=== PATIENT | male | born 1940 | race Caucasian/White ===

== ENCOUNTER → 2016-04-17 | Outpatient (CLI) | payer MEDICARE, OTHER | LOC: RAD 09:08 | PROVIDERS: ATTEND Preventive Medicine Undersea and Hyperbaric Medicine | DX: L89.894 Pressure ulcer of other site, stage 4 (principal) ==

== ENCOUNTER → 2016-05-29 | Outpatient (CLI) | payer MEDICARE, OTHER | LOC: OD 09:46 | PROVIDERS: ATTEND Preventive Medicine Undersea and Hyperbaric Medicine | DX: L89.92 Pressure ulcer of unspecified site, stage 2 (principal) ==

== ENCOUNTER → 2016-05-29 | Outpatient (CLI) | payer MEDICARE, OTHER ==
[2016-05-29 11:04] LABS: ABSOLUTE EOSINOPHILS # (AUTO) 0.5 10^3/uL (0.0-0.6); ABSOLUTE LYMPHOCYTES (AUTO) 1.1 10^3/uL (0.5-4.7); ABSOLUTE MONOCYTES (AUTO) 0.6 10^3/uL (0.1-1.4); ABSOLUTE NEUT (AUTO) 4.9 10^3/uL (1.7-8.2); BASOPHILS % (AUTO) 0.6 % (0-2); EOSINOPHILS % (AUTO) 6.9 % (0-6); HEMOGLOBIN 12.8 g/dL (13.5-17.0); HGB HCT DIFFERENCE 0.4; MEAN CORPUSCULAR HEMOGLOBIN 34.2 pg (27.0-33.4); MEAN CORPUSCULAR HGB CONC 33.8 g/dL (32.0-36.0); MEAN CORPUSCULAR VOLUME 101 fl (80-97); MONOCYTES % (AUTO) 8.1 % (3-13); RED BLOOD COUNT 3.75 10^6/uL (4.35-5.55); RED CELL DISTRIBUTION WIDTH 12.9 % (11.5-14.0); SEGMENTED NEUTROPHILS % (AUTO) 69.4 % (42-78)
[2016-05-29 11:37] LABS: ALANINE AMINOTRANSFERASE 30 U/L (21-72); ALBUMIN 3.5 g/dL (3.5-5.0); ALKALINE PHOSPHATASE 80 U/L (38-126); ANION GAP 8 (5-19); ASPARTATE AMINO TRANSFERASE 38 U/L (17-59); BILIRUBIN,TOTAL 0.8 mg/dL (0.2-1.3); BLOOD UREA NITROGEN 14 mg/dL (7-20); C-REACTIVE PROTEIN 5.5 mg/L (<10.0); CARBON DIOXIDE 31 mmol/L (22-30); CHLORIDE 104 mmol/L (98-107); CREATININE RESULT 1.42 mg/dL (0.52-1.25); GLUCOSE 100 mg/dL (75-110); POTASSIUM 4.2 mmol/L (3.6-5.0); SODIUM 142.5 mmol/L (137-145); TOTAL PROTEIN 6.8 g/dL (6.3-8.2)
[2016-05-29 11:43] LABS: ERYTHROCYTE SEDIMENTATION RATE 46 mm/hr (0-20)
== END ==
LOC: WC 10:08
PROVIDERS: ATTEND Preventive Medicine Undersea and Hyperbaric Medicine
DX: L89.92 Pressure ulcer of unspecified site, stage 2 (principal)
CPT/HCPCS: 36415; 80053; 85025; 85652; 86140

== ENCOUNTER → 2016-07-24 | Outpatient (CLI) | payer MEDICARE, OTHER | LOC: OD 09:27 | PROVIDERS: ATTEND Preventive Medicine Undersea and Hyperbaric Medicine | DX: L89.894 Pressure ulcer of other site, stage 4 (principal) ==

== ENCOUNTER → 2016-09-11 | Outpatient (CLI) | payer MEDICARE, OTHER ==
--- NOTE | 2016-09-11 10:39 | RADIOLOGY REPORT (SQ) ---
EXAM DESCRIPTION: FOOT RIGHT COMPLETE COMPLETED DATE/TIME: 09/11/2016 10:00 am REASON FOR STUDY: PAIN IN RIGHT FOOT M79.671 PAIN IN RIGHT FOOT COMPARISON: Foot films 04/17/2016, 05/29/2016, 07/24/2016 NUMBER OF VIEWS: Three views. TECHNIQUE: AP, lateral and oblique radiographic images acquired of the right foot. LIMITATIONS: Bandages over the great toe distal tip FINDINGS: MINERALIZATION: Normal. BONES: No acute fracture. Specifically, no fracture of the right great toe distal phalanx. Prominen t plantar calcaneal spur unchanged. 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 SOFT TISSUES: Gauze bandages present over the right great toe distal phalanx region. Soft tissue lac eration is present. No gross retained radiopaque foreign body OTHER: No other significant finding. IMPRESSION: No acute fracture right great toe TECHNICAL DOCUMENTATION: JOB ID: [id number] 1989[employer]- All Rights Reserved
== END ==
LOC: OD 09:27
PROVIDERS: ATTEND Preventive Medicine Undersea and Hyperbaric Medicine
DX: M79.671 Pain in right foot (principal)

== ENCOUNTER 2016-09-12 10:28 | Emergency (ER) | payer MEDICARE, OTHER ==
[2016-09-12] MEDS ORDERED: OXYCODONE-ACETAMINOPHEN 5-325 MG TABLET PO ONE (11:07)
[2016-09-12] MEDS ORDERED: ONDANSETRON 4 MG TAB.RAPDIS PO ONE (11:07)
--- NOTE | 2016-09-12 11:07 | ER Document Report ---
ED Medical Screen (RME) - General Chief Complaint: Fall Injury Stated Complaint: FALL SHOULDER PAIN Time Seen by Provider: 09/12/16 10:55 Mode of Arrival: Ambulatory Information source: Patient TRAVEL OUTSIDE OF THE U.[place] IN LAST 30 DAYS: No - HPI Onset: This morning Onset/Duration: Sudden Quality of pain: Sharp Severity: Moderate Associated Symptoms: None Exacerbated by: Movement Relieved by: Remaining still - Related Data Allergies/Adverse Reactions: amoxicillin trihydrate [From Augmentin] Adverse Reaction (Verified 09/12/16 10: 29) Dizziness Potassium Clavulanate * [From Augmentin] Adverse Reaction (Verified 09/12/16 10: 29) Dizziness Past Medical History - General Information source: Patient - Past Medical History Cardiac Medical History: Reports: Hx Hypertension Denies: Hx Coronary Artery Disease, Hx Heart Attack Pulmonary Medical History: Denies: Hx Asthma, Hx Bronchitis, Hx COPD, Hx Pneumonia, Hx Tuberculosis Neurological Medical History: Denies: Hx Cerebrovascular Accident, Hx Seizures Renal/ Medical History: Denies: Hx Peritoneal Dialysis Musculoskeltal Medical History: Reports Hx Arthritis - Back and Generalized Past Surgical History: Reports: Hx Tonsillectomy. Denies: Hx Pacemaker - Immunizations Hx Diphtheria, Pertussis, Tetanus Vaccination: Yes - Update 2011 Review of Systems - Review of Systems Constitutional: No symptoms reported Cardiovascular: denies: Syncope, Dizziness, Lightheaded Neurological/Psychological: Weakness - CANDELARIA LEGS "GAVE OUT" Physical Exam - Vital signs Vitals: Temp Pulse Resp BP Pulse Ox 98.5 F 91 19 128/78 H 95 09/12/16 10:29 09/12/16 10:29 09/12/16 10:29 09/12/16 10:29 09/12/16 10:29 Interpretation: Normal - General General appearance: Appears well, Alert In distress: None - Extremities General upper extremity: Tender - R. CLAVICLE & DELTOID AREA Shoulder: Tender. No: Deformity, Dislocation Course - Vital Signs Vital signs: Temp Pulse Resp BP Pulse Ox 98.5 F 91 19 128/78 H 09/12/16 10:30 09/12/16 10:30 09/12/16 10:30 09/12/16 10:30 09/12/16 10:30
--- NOTE | 2016-09-12 11:50 | RADIOLOGY REPORT (SQ) ---
EXAM DESCRIPTION: CLAVICLE RIGHT COMPLETED DATE/TIME: 09/12/2016 11:41 am REASON FOR STUDY: FALL, PAIN COMPARISON: None. NUMBER OF VIEWS: Two views. TECHNIQUE: Frontal and angled images were acquired of the right clavicle. LIMITATIONS: None. FINDINGS: MINERALIZATION: Normal. BONES: No acute fracture or dislocation. No worrisome bone lesions. SOFT TISSUES: No obvious swelling or foreign body. OTHER: There is mild bony overgrowth of the distal clavicle. IMPRESSION: Mild degenerative joint changes in the acromioclavicular joint with no acute abnormality . TECHNICAL DOCUMENTATION: JOB ID: [id number] [employer]- All Rights Reserved
--- NOTE | 2016-09-12 11:51 | RADIOLOGY REPORT (SQ) ---
EXAM DESCRIPTION: SHOULDER RIGHT 2 OR MORE VIEWS COMPLETED DATE/TIME: 09/12/2016 11:41 am REASON FOR STUDY: FALL, PAIN COMPARISON: None. NUMBER OF VIEWS: Three views. TECHNIQUE: Internal rotation, external rotation, and Y view images acquired of the right shoulder. LIMITATIONS: None. FINDINGS: MINERALIZATION: Normal. BONES: No acute fracture or dislocation. No worrisome bone lesions. JOINTS: Mild degenerative joint changes seen in the acromioclavicular joint. VISUALIZED LUNGS AND RIBS: No pneumothorax. No rib fracture. SOFT TISSUES: No radiopaque foreign body. OTHER: No other significant finding. IMPRESSION: Mild degenerative joint changes in the right acromioclavicular joint. No acute abnormal ity in the shoulder. TECHNICAL DOCUMENTATION: JOB ID: [id number] [employer]- All Rights Reserved
--- NOTE | 2016-09-12 11:58 | ER Document Report ---
ED General - General Chief Complaint: Fall Injury Stated Complaint: FALL SHOULDER PAIN Time Seen by Provider: 09/12/16 10:55 Mode of Arrival: Ambulatory Notes: Patient presents emergency department with complaints of right shoulder pain. Patient reports that he was going walking down his hallway when he went down to 1 knee and fell onto his right shoulder. He denies change in LOC. Did not hit his head. Patient reports his shoulder hurt at that time and has increased pain. He was evaluated for his toe injury by Dr. Fowler yesterday. Patient complains of pain with any type of movement to his right arm active or passive. Place a heating pad on his shoulder area. TRAVEL OUTSIDE OF THE [place] IN LAST 30 DAYS: No - HPI Onset: Other - thursday Onset/Duration: Worse Quality of pain: Achy Severity: Severe Pain Level: 5 Associated symptoms: None Exacerbated by: Movement Relieved by: Denies Similar symptoms previously: No Recently seen / treated by doctor: Yes - toe injury - Related Data Allergies/Adverse Reactions: amoxicillin trihydrate [From Augmentin] Adverse Reaction (Verified 09/12/16 10: 29) Dizziness Potassium Clavulanate * [From Augmentin] Adverse Reaction (Verified 09/12/16 10: 29) Dizziness Past Medical History - General Information source: Patient - Social History Smoking Status: Unknown if Ever Smoked Cigarette use (# per day): No Frequency of alcohol use: Occasional Drug Abuse: None Family History: Reviewed & Not Pertinent Patient has suicidal ideation: No Patient has homicidal ideation: No - Past Medical History Cardiac Medical History: Reports: Hx Hypercholesterolemia, Hx Hypertension Denies: Hx Coronary Artery Disease, Hx Heart Attack Pulmonary Medical History: Denies: Hx Asthma, Hx Bronchitis, Hx COPD, Hx Pneumonia, Hx Tuberculosis Neurological Medical History: Denies: Hx Cerebrovascular Accident, Hx Seizures Renal/ Medical History: Denies: Hx Peritoneal Dialysis Musculoskeltal Medical History: Reports Hx Arthritis - Back and Generalized Past Surgical History: Reports: Hx Orthopedic Surgery, Hx Tonsillectomy. Denies : Hx Pacemaker - Immunizations Hx Diphtheria, Pertussis, Tetanus Vaccination: Yes - Update 2010 Review of Systems - Review of Systems Notes: Review HPI for review of systems., All other systems negative Physical Exam - Vital signs Vitals: Temp Pulse Resp BP Pulse Ox 98.5 F 91 19 128/78 H 95 09/12/16 10:29 09/12/16 10:29 09/12/16 10:29 09/12/16 10:29 09/12/16 10:29 - Notes Notes: PHYSICAL EXAMINATION: GENERAL: nontoxic looking HEAD: Atraumatic, normocephalic. no open wounds, no c/o pain EYES: extraocular movements intact, sclera anicteric, conjunctiva are normal. ENT: nares patent, Moist mucous membranes. NECK: Normal range of motion, supple without lymphadenopathy no vertebral tenderness LUNGS: CTAB and equal. No wheezes rales or rhonchi. HEART: Regular rate and rhythm without murmurs ABDOMEN: Soft, no tenderness. No guarding, no rebound EXTREMITIES: reports pain with passive and active ROM to right shoulder, erythema noted to shoulder, no warmth, no obvious deformity, no swelling NEUROLOGICAL: Cranial nerves grossly intact. Normal sensory/motor exams. PSYCH: Normal mood, normal affect. SKIN: Warm, Dry, normal turgor, no rashes or lesions noted Course - Re-evaluation Re-evalutation: 09/12/16 11:59 . X-rays negative patient instructed on results. consulted dr fajardo per [facility] guidelines, xray cc, history reviewed, she agrees with treatment plan of discharge fu with ortho. No sling provided because I'm worried about patients stability. He lives alone and uses a walker. I am also prescribing naproxen for the pain. Because I am again worried about his stability and because he lives alone. Pt reports he never takes pain medication. The patient reports his primary care provider is on [place] as well as orthopedics. He reports he will follow-up and make an appointment. - Vital Signs Vital signs: Temp Pulse Resp BP Pulse Ox 98.2 F 81 16 117/61 97 09/12/16 12:36 09/12/16 12:36 09/12/16 12:36 09/12/16 12:36 09/12/16 12:36 - Diagnostic Test Radiology reviewed: Image reviewed, Reports reviewed - Diagnostic report text EXAM DESCRIPTION: CLAVICLE RIGHT COMPLETED DATE/TIME: 09/12/2016 11:41 am REASON FOR STUDY: FALL, PAIN COMPARISON: None. NUMBER OF VIEWS: Two views. TECHNIQUE: Frontal and angled images were acquired of the right clavicle. LIMITATIONS: None. FINDINGS: MINERALIZATION: Normal. BONES: No acute fracture or dislocation. No worrisome bone lesions. SOFT TISSUES: No obvious swelling or foreign body. OTHER: There is mild bony overgrowth of the distal clavicle. IMPRESSION: Mild degenerative joint changes in the acromioclavicular joint with no acute abnormality. Diagnostic report text EXAM DESCRIPTION: SHOULDER RIGHT 2 OR MORE VIEWS COMPLETED DATE /TIME: 09/12/2016 11:41 am REASON FOR STUDY: FALL, PAIN COMPARISON: None. NUMBER OF VIEWS: Three views. TECHNIQUE: Internal rotation, external rotation , and Y view images acquired of the right shoulder. LIMITATIONS: None. FINDINGS: MINERALIZATION: Normal. BONES: No acute fracture or dislocation. No worrisome bone lesions. JOINTS: Mild degenerative joint changes seen in the acromioclavicular joint. VISUALIZED LUNGS AND RIBS: No pneumothorax. No rib fracture. SOFT TISSUES: No radiopaque foreign body. OTHER: No other significant finding. IMPRESSION: Mild degenerative joint changes in the right acromioclavicular joint. No acute abnormality in the shoulder. Discharge - Discharge Clinical Impression: Right shoulder pain Condition: Stable Disposition: HOME, SELF-CARE Instructions: Oral Narcotic Medication ([facility]), Anti-Inflammatory Medication ([facility] ) Additional Instructions: *You have been evaluated for right shoulder pain *Rest/ ice packs to your shoulder *Follow up with your primary care provider for recheck within 5 days *Follow up with orthopedics within one week *Take medication as prescribed *Return to ED for worsening condition, changes, needs Prescriptions: Naproxen 500 mg PO BID #20 tablet Forms: Elevated Blood Pressure Referrals: VIRIDIANA FOWLER DPM [Primary Care Provider] - Follow up in 1 week
[2016-09-12 12:38] VITALS: BP 117/61
== END 2016-09-12 12:36 | disposition home or self-care (01) ==
LOC: ER 10:28
DX: M25.511 Pain in right shoulder (principal); W19.XXXA Unspecified fall, initial encounter
CPT/HCPCS: 99283; 73000; 73030; A9270 ×2; S0119

== ENCOUNTER 2016-10-04 09:33 | Emergency (ER) | payer MEDICARE, OTHER ==
[2016-10-04 09:39] VITALS: BP 166/76
[2016-10-04] MEDS ORDERED: CEPHALEXIN 500 MG CAPSULE PO ONE (10:30)
--- NOTE | 2016-10-04 10:34 | ER Document Report ---
HPI - HPI Pain Level: 1 Context: This 75-year-old male who presents emergency department complaining of skin tears on his left arm. Patient states that he suffered a fall at his home 1 week ago on Thursday. Seen his primary care provider since then. Denies any other complaints other than skin tears on his arms that are not healing. Patient states that he has been dressing them with a Band-Aid but every time he pulls it off he continued to bleed. Patient is not on blood thinners or chronic steroids. Patient states that the lower of the 2 with overlying scab showed evidence of cloudy drainage this morning. Patient denies any fevers, chills, swelling, tenderness, redness. On medications for hypertension and cholesterol. - REPRODUCTIVE Reproductive: DENIES: : - DERM Skin Color: Normal Past Medical History - Social History Smoking Status: Never Smoker Family History: Reviewed & Not Pertinent Patient has suicidal ideation: No Patient has homicidal ideation: No - Past Medical History Cardiac Medical History: Reports: Hx Hypercholesterolemia, Hx Hypertension Denies: Hx Coronary Artery Disease, Hx Heart Attack Pulmonary Medical History: Denies: Hx Asthma, Hx Bronchitis, Hx COPD, Hx Pneumonia, Hx Tuberculosis Neurological Medical History: Denies: Hx Cerebrovascular Accident, Hx Seizures Renal/ Medical History: Denies: Hx Peritoneal Dialysis Musculoskeltal Medical History: Reports Hx Arthritis - Back and Generalized Past Surgical History: Reports: Hx Orthopedic Surgery, Hx Tonsillectomy. Denies : Hx Pacemaker - Immunizations Hx Diphtheria, Pertussis, Tetanus Vaccination: Yes - Update 2011 [facility] Provider Document - CONSTITUTIONAL Agree With Documented VS: Yes Exam Limitations: No Limitations General Appearance: WD/WN, No Apparent Distress - INFECTION CONTROL TRAVEL OUTSIDE OF THE [place] IN LAST 30 DAYS: No - RESPIRATORY O2 Sat by Pulse Oximetry: 97 - CARDIOVASCULAR Pulses: Normal: Radial - MUSCULOSKELETAL/EXTREMETIES Musculoskeletal/Extremeties: MAEW, FROM, Non-Tender, No Edema - NEURO Level of Consciousness: Awake, Alert, Appropriate Motor/Sensory: No Motor Deficit, No Sensory Deficit - DERM Integumentary: Warm, Dry, No Rash Adult Front & Back Diagram: 1 - skin tear without overlying skin, reveal healthy pink tissue with minimal bleeding, no evidence of cellulitis 2 - skin tear with intact overlying skin, no evidence of purulent draiange, cellulitis Course - Re-evaluation Re-evalutation: 10/04/16 11:13 Patient presents today with evidence of poorly healing skin tears given that patient has been using dry dressings. Patient educated on wound care and placed on prophylactic antibiotic. Patient to follow-up with primary care in 3- 5 days - Vital Signs Vital signs: Temp Pulse Resp BP Pulse Ox 98.1 F 73 18 166/76 H 97 10/04/16 09:37 10/04/16 09:37 10/04/16 09:37 10/04/16 09:37 10/04/16 09:37 Discharge - Discharge Clinical Impression: Skin tear Condition: Good Disposition: HOME, SELF-CARE Instructions: Skin Tear ([facility]), Cephalexin ([facility]) Additional Instructions: Dress the site with an antibiotic ointment like bacitracin, cover with a NON STICK dressing Do dressing changes once daily or as needed Prescriptions: Cephalexin Monohydrate [Keflex 500 mg Capsule] 500 mg PO QID #20 capsule Forms: Elevated Blood Pressure
== END 2016-10-04 10:36 | disposition home or self-care (01) ==
LOC: ER 09:33
DX: S41.112A Laceration without foreign body of left upper arm, initial encounter (principal); W19.XXXA Unspecified fall, initial encounter
CPT/HCPCS: 99282; A9270

== ENCOUNTER 2016-10-26 21:52 | Emergency (ER) | payer MEDICARE, OTHER ==
[2016-10-26] MEDS ORDERED: LIDOCAINE 1% INJ-PF (10 MG/ML) 30 ML SDV INJ ONE (23:24)
--- NOTE | 2016-10-26 23:48 | RADIOLOGY REPORT (SQ) ---
EXAM DESCRIPTION: CT HEAD WITHOUT COMPLETED DATE/TIME: 10/26/2016 11:37 pm REASON FOR STUDY: trauma COMPARISON: 2016 TECHNIQUE: Axial images acquired through the brain without intravenous contrast. Images reviewed wi th bone, brain and subdural windows. Images stored on PACS. All CT scanners at this facility use dose modulation, iterative reconstruction, and/or weight based d osing when appropriate to reduce radiation dose to as low as reasonably achievable (ALARA). [facility]: Dose Right [facility]: CareDose [facility]: Dose Right [facility]: Teradose 4D [facility]: Smart NCLC RADIATION DOSE: Up-to-date CT equipment and radiation dose reduction techniques were employed. CTDIv ol: 64.6 mGy. DLP: 1163 mGy-cm.mGy. LIMITATIONS: None. FINDINGS: VENTRICLES: Slight prominence. Stable. CEREBRUM: No masses. No hemorrhage. No midline shift. Minimal of low density in the white matter m ost likely due to chronic micro-vascular ischemic change. No evidence for acute infarction. CEREBELLUM: No masses. No hemorrhage. No alteration of density. No evidence for acute infarction. EXTRAAXIAL SPACES: Age-related involutional change. No fluid collections. No masses. ORBITS AND GLOBE: No intra- or extraconal masses. Normal contour of globe without masses. CALVARIUM: No fracture. PARANASAL SINUSES: No fluid or mucosal thickening. SOFT TISSUES: Right frontal scalp laceration. OTHER: No other significant finding. IMPRESSION: Mild chronic intracranial changes. Soft tissue injury without acute abnormality otherwi se. TECHNICAL DOCUMENTATION: JOB ID: [id number] Quality ID # [id number]: Final reports with documentation of one or more dose reduction techniques (e.g., Au tomated exposure control, adjustment of the mA and/or kV according to patient size, use of iterative reconstruction technique) 2010 [employer]- All Rights Reserved
--- NOTE | 2016-10-27 00:10 | ER Document Report ---
ED General - General Chief Complaint: Laceration Stated Complaint: LACERATION TO SCALP Time Seen by Provider: 10/26/16 23:18 Notes: Patient is a 76-year-old male presents with complaint of laceration to the scalp. [facility] and [facility] and fell and hit his head. No loss conscious. He denies any neck pain. He denies any other injuries. He denies being on blood thinning medications. TRAVEL OUTSIDE OF THE [place] IN LAST 30 DAYS: No - Related Data Allergies/Adverse Reactions: amoxicillin trihydrate [From Augmentin] Adverse Reaction (Verified 10/04/16 09: 37) Dizziness Potassium Clavulanate * [From Augmentin] Adverse Reaction (Verified 10/04/16 09: 37) Dizziness Past Medical History - Social History Smoking Status: Unknown if Ever Smoked Frequency of alcohol use: None Drug Abuse: None Family History: Reviewed & Not Pertinent Patient has suicidal ideation: No Patient has homicidal ideation: No - Past Medical History Cardiac Medical History: Reports: Hx Hypercholesterolemia, Hx Hypertension Denies: Hx Coronary Artery Disease, Hx Heart Attack Pulmonary Medical History: Denies: Hx Asthma, Hx Bronchitis, Hx COPD, Hx Pneumonia, Hx Tuberculosis Neurological Medical History: Denies: Hx Cerebrovascular Accident, Hx Seizures Renal/ Medical History: Denies: Hx Peritoneal Dialysis Musculoskeltal Medical History: Reports Hx Arthritis - Back and Generalized Past Surgical History: Reports: Hx Orthopedic Surgery, Hx Tonsillectomy. Denies : Hx Pacemaker - Immunizations Hx Diphtheria, Pertussis, Tetanus Vaccination: Yes - Update 2010 Review of Systems - Review of Systems Notes: My Normal Review Basic REVIEW OF SYSTEMS: CONSTITUTIONAL : Denies fever, chills, or sweats. Denies recent illness. GASTROINTESTINAL: Denies abdominal pain. Denies nausea, vomiting, or diarrhea. Denies constipation. Last BM: MUSCULOSKELETAL: Denies neck or back pain or joint pain or swelling. SKIN: Laceration to right oriental orthodox area. HEMATOLOGIC : Denies easy bruising or bleeding. LYMPHATIC: Denies swollen, enlarged glands. NEUROLOGICAL: Denies altered mental status or loss of consciousness. Denies headache. Denies weakness or paralysis or loss of use of either side. Denies problems with gait or speech. Denies sensory or motor loss. ALL OTHER SYSTEMS REVIEWED AND NEGATIVE. Physical Exam - Vital signs Vitals: Temp Pulse Resp BP Pulse Ox 97.8 F 65 18 142/69 H 97 10/26/16 21:59 10/26/16 21:59 10/26/16 21:59 10/26/16 21:59 10/26/16 21:59 - Notes Notes: General Appearance: Well nourished, alert, cooperative, no acute distress, no obvious discomfort. Vitals: reviewed, See vital signs table. Head: 4 cm laceration over the right oriental orthodox area. Eyes: PERRL, EOMI, Conjuctiva clear Mouth: No decreasd moisture Neck: Supple, no neck tenderness, No thyromegaly Lungs: No wheezing, No rales, No rhonci, No accessory muscle use, good air exchange bilaterally. Heart: Normal rate, Regular rythm, No murmur, no rub Abdomen: Normal BS, soft, No rigidity, No abdominal tenderness, No guarding, no rebound, Extremities: strength 5/5 in all extremities, good pulses in all extremities, no swelling or tenderness in the extremities, 2+ bilateral lower extremity edema. Skin: warm, dry, appropriate color, no rash Neuro: speech clear, oriented x 3, normal affect, responds appropriately to questions. Cranial nerves II through XII are intact. Distal sensation intact. Patient moves all extremities without difficulty. Course - Vital Signs Vital signs: Temp Pulse Resp BP Pulse Ox 97.1 F 66 16 149/74 H 98 10/27/16 01:15 10/27/16 01:15 10/27/16 01:15 10/27/16 01:15 10/27/16 01:15 - Transfer of Care Notes: 10/27/16 06:05 Laceration was cleaned and thoroughly irrigated. It was closed with sutures. CT scan of the head was negative. Patient tolerated the procedure well and will be discharged home. He is encouraged to return to ER if there is any redness or swelling around the laceration, fevers severe headache, or vomiting. Patient to have sutures removed in 7 days. Patient agrees with the plan and will be discharged home. Dictation of this chart was performed using voice recognition software; therefore, there may be some unintended grammatical errors. Procedures - Laceration/Wound Repair right temporarl area Wound length (cm): 4 Wound's Depth, Shape: Linear Anesthetic type: 1% Lidocaine Volume Anesthetic (mLs): 2 Wound explored: Clean Irrigated w/ Saline (mLs): 30 Wound Repaired With: Sutures Suture Size/Type: 5:0, Ethilon Number of Sutures: 4 Complications: No Discharge - Discharge Clinical Impression: Laceration Condition: Good Disposition: HOME, SELF-CARE Additional Instructions: LACERATION CARE: Your laceration has been sutured to keep the skin edges aligned during healing. The time of suture removal depends on the nature and location of your cut. Please follow the care instructions the doctor has outlined for you and return for further care, according to the schedule you've been given. Keep the wound and dressing clean. Unless you were told otherwise, you may shower daily, blotting the wound dry with a clean, unused towel. At other times, If the dressing gets wet or blood soaked, remove it and blot the wound dry, then reapply a new dressing. Unless you were instructed otherwise, dressings should be changed at least daily. If any signs of infection occur (swelling, redness, drainage, increasing tenderness, red streaks, tender lumps in the armpit or groin above the laceration, or fever), see the doctor immediately. SOAP CLEANSING: Gently wash the wound daily using a mild soap (like Ivory, Phisoderm, Neutrogena). Use warm water, rubbing gently until all debris, ooze, and crusting have been washed from the wound. Allow to dry briefly (about 10 minutes) after cleaning. Repeat this cleansing at least three times a day for the first two days and then once or twice a day. ANTIBIOTIC OINTMENT PROTECTION: Your wounds are such that dressing them is not practical or optional. After cleansing, you should apply a thin coating of antibiotic ointment ( Bacitracin, not Neosporin) to the wounds at least three times daily. This lessens infection risk, and may decrease the amount of scarring. Use a q-tip or dull butter knife, not your finger, to apply this ointment. Any debris or ooze which builds up in the ointment should be gently rubbed off with a sterile gauze pad. Harder crusting may need to be gently scrubbed off with a clean wash cloth with soap and warm water, perhaps applying a warm, wet wash cloth to the wound for ten minutes first. Development of redness, severe itching, or blistering may mean allergy to the ointment. See the doctor. FOLLOW-UP CARE: Your sutures should be removed in ___7__ days. To facilitate a timely removal of your sutures, you may return to the Emergency Department at [facility]. You do not need to call for an appointment, but the best time to come in for suture removal is early in the morning. If you have been referred to another physician for follow-up care, call that physicians office for an appointment as you were instructed. If you experience a significant change in your laceration, or if you are concerned there may be an infection (swelling, redness, drainage, increasing tenderness, red streaks, tender lumps in the armpit or groin above the laceration, or fever) , return to the Emergency Department immediately re-evaluation.
[2016-10-27 01:48] VITALS: BP 149/74
== END 2016-10-27 01:20 | disposition home or self-care (01) ==
LOC: ER 21:52
PROC: 0HQ1XZZ Repair Face Skin, External Approach (ICD-10-PCS; principal; 2016-10-26)
DX: S01.01XA Laceration without foreign body of scalp, initial encounter (principal); W01.0XXA Fall on same level from slipping, tripping and stumbling without subsequent striking against object, initial encounter
CPT/HCPCS: 70450; 99283

== ENCOUNTER 2016-11-11 05:00 | Emergency (ER) | payer MEDICARE, OTHER ==
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
[2016-11-11 14:15] VITALS: BP 127/85
== END 2016-11-11 17:32 | disposition home or self-care (01) ==
LOC: ER 05:00
DX: S51.812A Laceration without foreign body of left forearm, initial encounter (principal); S51.811A Laceration without foreign body of right forearm, initial encounter; X58.XXXA Exposure to other specified factors, initial encounter; F03.90 Unspecified dementia, unspecified severity, without behavioral disturbance, psychotic disturbance, mood disturbance, and anxiety; R45.1 Restlessness and agitation; I10 Essential (primary) hypertension
CPT/HCPCS: 99284

== ENCOUNTER 2017-12-26 12:03 | Inpatient (IN) | payer MEDICARE, OTHER ==
[2017-12-26] MEDS ORDERED: LEVOFLOXACIN 750 MG/D5W RTU 750 MG/150 ML RTUPB IV ONE (13:18)
[2017-12-26 13:35] LABS: ABSOLUTE EOSINOPHILS # (AUTO) 0.2 10^3/uL (0.0-0.6); ABSOLUTE LYMPHOCYTES (AUTO) 0.9 10^3/uL (0.5-4.7); ABSOLUTE MONOCYTES (AUTO) 0.9 10^3/uL (0.1-1.4); ABSOLUTE NEUT (AUTO) 8.7 10^3/uL (1.7-8.2); BASOPHILS % (AUTO) 0.4 % (0-2); EOSINOPHILS % (AUTO) 2.1 % (0-6); HEMATOCRIT 39.9 % (37.9-51.0); HEMOGLOBIN 13.5 g/dL (13.5-17.0); LYMPHOCYTES % (AUTO) 8.4 % (13-45); MEAN CORPUSCULAR HEMOGLOBIN 33.2 pg (27.0-33.4); MEAN CORPUSCULAR HGB CONC 33.9 g/dL (32.0-36.0); MEAN CORPUSCULAR VOLUME 98 fl (80-97); MONOCYTES % (AUTO) 8.8 % (3-13); PLATELET COUNT 175 10^3/uL (150-450); RED BLOOD COUNT 4.08 10^6/uL (4.35-5.55); RED CELL DISTRIBUTION WIDTH 13.3 % (11.5-14.0); SEGMENTED NEUTROPHILS % (AUTO) 80.3 % (42-78); TOTAL CELLS COUNTED % (AUTO) 100 %; WHITE BLOOD COUNT 10.8 10^3/uL (4.0-10.5)
[2017-12-26 13:51] LABS: ALANINE AMINOTRANSFERASE 16 U/L (21-72); ALBUMIN 4.4 g/dL (3.5-5.0); ALKALINE PHOSPHATASE 66 U/L (38-126); ANION GAP 8 (5-19); ASPARTATE AMINO TRANSFERASE 47 U/L (17-59); BILIRUBIN,TOTAL 2.8 mg/dL (0.2-1.3); BLOOD UREA NITROGEN 16 mg/dL (7-20); CALCIUM 9.6 mg/dL (8.4-10.2); CARBON DIOXIDE 26 mmol/L (22-30); CHLORIDE 103 mmol/L (98-107); GLUCOSE 99 mg/dL (75-110); POTASSIUM 5.1 mmol/L (3.6-5.0); SODIUM 136.5 mmol/L (137-145); TOTAL PROTEIN 8.7 g/dL (6.3-8.2)
--- NOTE | 2017-12-26 14:13 | RADIOLOGY REPORT (SQ) ---
EXAM DESCRIPTION: FOOT BILATERAL 3 VIEWS COMPLETED DATE/TIME: 12/26/2017 1:56 pm REASON FOR STUDY: EVAL FOR INFECTION COMPARISON: None. NUMBER OF VIEWS: Three views. TECHNIQUE: AP, lateral and oblique radiographic images acquired of the right and left foot. LIMITATIONS: None. FINDINGS: RIGHT: MINERALIZATION: Normal. BONES: No acute fracture or dislocation. Prominent plantar calcaneal spur. 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 No foreign body. No soft tissue gas OTHER: No other significant finding. LEFT: MINERALIZATION: Normal. BONES: No acute fracture or dislocation. No aggressive demineralization or periostitis worrisome for osteomyelitis. JOINTS: Advanced osteoarthritis left 1st metatarsophalangeal joint SOFT TISSUES: Soft tissue ulcer medial left forefoot at the 1st metatarsophalangeal joint without und erlying bony findings worrisome for osteomyelitis. Mild diffuse forefoot soft tissue swelling. No s oft tissue gas or radiopaque foreign body OTHER: No other significant finding. IMPRESSION: Mild right forefoot soft tissue swelling Soft tissue ulcer medial left foot at the 1st metatarsophalangeal joint region without bony changes w orrisome for osteomyelitis TECHNICAL DOCUMENTATION: JOB ID: [id number] [employer]- All Rights Reserved Reading location - IP/workstation name: [facility]-[email or web address]
[2017-12-26] MEDS ORDERED: ACETAMINOPHEN 325 MG TABLET PO ONE (14:15)
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
[2017-12-26] MEDS ORDERED: ONDANSETRON HCL INJ/PF 4 MG/2 ML SDV IV PRN (14:52)
[2017-12-26] MEDS ORDERED: AMPICILLIN SODIUM/SULBACTAM NA 2 GM in NORMAL SALINE 100 ML IV SCH (15:00)
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
[2017-12-26] MEDS: AMPICILLIN SODIUM/SULBACTAM NA 3 GM in NORMAL SALINE 100 ML IV SCH (18:26)
[2017-12-26] MEDS: ACETAMINOPHEN 325 MG TABLET PO PRN (20:49)
[2017-12-26] MEDS: HEPARIN SOD (PORCINE) 5,000 UNIT/ML 1 ML SYRINGE SUBCUT SCH (22:05)
[2017-12-26] MEDS: METOPROLOL SUCCINATE 50 MG TAB.SR.24H PO SCH (22:05)
[2017-12-26] MEDS: FAMOTIDINE 20 MG TABLET PO SCH (22:05)
[2017-12-27] MEDS: AMPICILLIN SODIUM/SULBACTAM NA 3 GM in NORMAL SALINE 100 ML IV SCH ×5 (01:09→23:00)
[2017-12-27 05:45] LABS: ABSOLUTE EOSINOPHILS # (AUTO) 0.3 10^3/uL (0.0-0.6); ABSOLUTE LYMPHOCYTES (AUTO) 0.4 10^3/uL (0.5-4.7); ABSOLUTE MONOCYTES (AUTO) 0.5 10^3/uL (0.1-1.4); ABSOLUTE NEUT (AUTO) 5.7 10^3/uL (1.7-8.2); BASOPHILS % (AUTO) 0.3 % (0-2); EOSINOPHILS % (AUTO) 4.7 % (0-6); HEMATOCRIT 35.4 % (37.9-51.0); MEAN CORPUSCULAR HEMOGLOBIN 33.1 pg (27.0-33.4); MEAN CORPUSCULAR HGB CONC 33.9 g/dL (32.0-36.0); MEAN CORPUSCULAR VOLUME 98 fl (80-97); MONOCYTES % (AUTO) 6.7 % (3-13); PLATELET COUNT 138 10^3/uL (150-450); RED BLOOD COUNT 3.62 10^6/uL (4.35-5.55); RED CELL DISTRIBUTION WIDTH 13.5 % (11.5-14.0); SEGMENTED NEUTROPHILS % (AUTO) 82.3 % (42-78); TOTAL CELLS COUNTED % (AUTO) 100 %
[2017-12-27 06:07] LABS: ANION GAP 8 (5-19); BLOOD UREA NITROGEN 18 mg/dL (7-20); CALCIUM 8.9 mg/dL (8.4-10.2); CARBON DIOXIDE 24 mmol/L (22-30); CHLORIDE 105 mmol/L (98-107); GLUCOSE 100 mg/dL (75-110); SODIUM 137.1 mmol/L (137-145)
[2017-12-27] MEDS: HEPARIN SOD (PORCINE) 5,000 UNIT/ML 1 ML SYRINGE SUBCUT SCH ×3 (06:11→22:53)
[2017-12-27 07:12] LABS: POTASSIUM 4.1 mmol/L (3.6-5.0)
[2017-12-27] MEDS: METOPROLOL SUCCINATE 50 MG TAB.SR.24H PO SCH ×2 (11:00→22:57)
[2017-12-27] MEDS: FAMOTIDINE 20 MG TABLET PO SCH ×2 (11:00→22:57)
[2017-12-27] MEDS: RAMIPRIL 5 MG CAPSULE PO SCH (11:00)
[2017-12-27] MEDS: DOCUSATE SODIUM 100 MG CAPSULE PO SCH (11:00)
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
[2017-12-27] MEDS: ACETAMINOPHEN 325 MG TABLET PO PRN (14:41)
[2017-12-28 05:41] LABS: HEMATOCRIT 35.3 % (37.9-51.0); HEMOGLOBIN 12.2 g/dL (13.5-17.0); MEAN CORPUSCULAR HEMOGLOBIN 33.5 pg (27.0-33.4); MEAN CORPUSCULAR HGB CONC 34.5 g/dL (32.0-36.0); MEAN CORPUSCULAR VOLUME 97 fl (80-97); PLATELET COUNT 139 10^3/uL (150-450); RED BLOOD COUNT 3.63 10^6/uL (4.35-5.55); RED CELL DISTRIBUTION WIDTH 13.6 % (11.5-14.0); WHITE BLOOD COUNT 9.5 10^3/uL (4.0-10.5)
[2017-12-28] MEDS: HEPARIN SOD (PORCINE) 5,000 UNIT/ML 1 ML SYRINGE SUBCUT SCH ×3 (05:41→22:52)
[2017-12-28] MEDS: AMPICILLIN SODIUM/SULBACTAM NA 3 GM in NORMAL SALINE 100 ML IV SCH ×4 (06:00→23:14)
[2017-12-28 06:14] LABS: ANION GAP 7 (5-19); BLOOD UREA NITROGEN 22 mg/dL (7-20); CALCIUM 8.3 mg/dL (8.4-10.2); CARBON DIOXIDE 22 mmol/L (22-30); CHLORIDE 106 mmol/L (98-107); GLUCOSE 105 mg/dL (75-110); SODIUM 135.3 mmol/L (137-145)
[2017-12-28 06:15] LABS: ABSOLUTE LYMPHOCYTES# (MANUAL) 0.1 10^3/uL (0.5-4.7); ABSOLUTE MONOCYTES # (MANUAL) 0.6 10^3/uL (0.1-1.4); ABSOLUTE NEUTROPHILS# (MANUAL) 8.5 10^3/uL (1.7-8.2); BASOPHILS % (MANUAL) 0 % (0-2); EOSINOPHILS % (MANUAL) 4 % (0-6); LYMPHOCYTES % (MANUAL) 1 % (13-45); MONOCYTES % (MANUAL) 6 % (3-13); SEGMENTED NEUTROPHILS % (MAN) 89 % (42-78); TOTAL CELLS COUNTED 100
[2017-12-28 06:16] LABS: PLATELET COMMENT ADEQUATE; RBC MORPHOLOGY COMMENT NORMO-CYTIC/CHROMIC
[2017-12-28] MEDS: DOCUSATE SODIUM 100 MG CAPSULE PO SCH (09:22)
[2017-12-28] MEDS: METOPROLOL SUCCINATE 50 MG TAB.SR.24H PO SCH ×2 (09:22→23:01)
[2017-12-28] MEDS: RAMIPRIL 5 MG CAPSULE PO SCH (09:23)
[2017-12-28] MEDS: FAMOTIDINE 20 MG TABLET PO SCH ×2 (09:26→23:04)
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
[2017-12-29 05:43] LABS: HEMATOCRIT 32.9 % (37.9-51.0); HEMOGLOBIN 11.4 g/dL (13.5-17.0); MEAN CORPUSCULAR HEMOGLOBIN 33.6 pg (27.0-33.4); MEAN CORPUSCULAR HGB CONC 34.6 g/dL (32.0-36.0); MEAN CORPUSCULAR VOLUME 97 fl (80-97); PLATELET COUNT 126 10^3/uL (150-450); RED BLOOD COUNT 3.38 10^6/uL (4.35-5.55); RED CELL DISTRIBUTION WIDTH 13.8 % (11.5-14.0); WHITE BLOOD COUNT 8.2 10^3/uL (4.0-10.5)
[2017-12-29 06:00] LABS: ANION GAP 6 (5-19); BLOOD UREA NITROGEN 23 mg/dL (7-20); CALCIUM 7.7 mg/dL (8.4-10.2); CARBON DIOXIDE 24 mmol/L (22-30); CHLORIDE 105 mmol/L (98-107); GLUCOSE 91 mg/dL (75-110); POTASSIUM 3.8 mmol/L (3.6-5.0); SODIUM 134.6 mmol/L (137-145)
[2017-12-29 06:09] LABS: ABSOLUTE LYMPHOCYTES# (MANUAL) 0.5 10^3/uL (0.5-4.7); ABSOLUTE MONOCYTES # (MANUAL) 0.4 10^3/uL (0.1-1.4); ABSOLUTE NEUTROPHILS# (MANUAL) 6.9 10^3/uL (1.7-8.2); BASOPHILS % (MANUAL) 0 % (0-2); EOSINOPHILS % (MANUAL) 5 % (0-6); LYMPHOCYTES % (MANUAL) 6 % (13-45); MONOCYTES % (MANUAL) 5 % (3-13); PLATELET COMMENT ADEQUATE; RBC MORPHOLOGY COMMENT NORMO-CYTIC/CHROMIC; SEGMENTED NEUTROPHILS % (MAN) 84 % (42-78); TOTAL CELLS COUNTED 100
[2017-12-29] MEDS: HEPARIN SOD (PORCINE) 5,000 UNIT/ML 1 ML SYRINGE SUBCUT SCH ×3 (06:11→21:32)
[2017-12-29] MEDS: AMPICILLIN SODIUM/SULBACTAM NA 3 GM in NORMAL SALINE 100 ML IV SCH ×4 (06:22→23:44)
[2017-12-29] MEDS: RAMIPRIL 5 MG CAPSULE PO SCH (09:11)
[2017-12-29] MEDS: FAMOTIDINE 20 MG TABLET PO SCH ×2 (09:13→21:40)
[2017-12-29] MEDS: DOCUSATE SODIUM 100 MG CAPSULE PO SCH (09:13)
[2017-12-29] MEDS: METOPROLOL SUCCINATE 50 MG TAB.SR.24H PO SCH ×2 (15:19→21:37)
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
[2017-12-30] MEDS: HEPARIN SOD (PORCINE) 5,000 UNIT/ML 1 ML SYRINGE SUBCUT SCH ×3 (06:36→21:57)
[2017-12-30] MEDS: AMPICILLIN SODIUM/SULBACTAM NA 3 GM in NORMAL SALINE 100 ML IV SCH ×2 (06:39→11:37)
[2017-12-30] MEDS: METOPROLOL SUCCINATE 50 MG TAB.SR.24H PO SCH ×2 (09:08→21:56)
[2017-12-30] MEDS: RAMIPRIL 5 MG CAPSULE PO SCH (09:08)
[2017-12-30] MEDS: FAMOTIDINE 20 MG TABLET PO SCH ×2 (09:18→22:02)
[2017-12-30] MEDS: DOCUSATE SODIUM 100 MG CAPSULE PO SCH (09:23)
--- NOTE | 2017-12-30 16:50 | PDOC PROGRESS REPORT ---
Subjective Reason For Visit: CELLULITIS Physical Exam Vital Signs: Temp Pulse Resp BP Pulse Ox 98.4 F 57 L 16 101/53 L 94 12/30/17 08:30 12/30/17 08:30 12/30/17 08:30 12/30/17 08:30 12/30/17 08:30 Intake & Output 12/29/17 12/30/17 12/31/17 06:59 06:59 06:59 Intake Total 1280 1298 200 Output Total 600 850 Balance 680 448 200 Weight 106.4 kg 107.1 kg General appearance: PRESENT: no acute distress, cooperative Head exam: PRESENT: atraumatic, normocephalic Eye exam: PRESENT: conjunctiva pink. ABSENT: conjunctival injection Ear exam: PRESENT: normal external ear exam. ABSENT: bleeding, drainage Mouth exam: PRESENT: neck supple, tongue midline Neck exam: ABSENT: thyromegaly, tracheal deviation Respiratory exam: PRESENT: clear to auscultation aundrea, symmetrical, unlabored Cardiovascular exam: PRESENT: RRR. ABSENT: clicks, diastolic murmur, gallop, rubs, systolic murmur Pulses: PRESENT: normal dorsalis pedis pul Vascular exam: PRESENT: normal capillary refill. ABSENT: pallor GI/Abdominal exam: PRESENT: normal bowel sounds, soft Rectal exam: PRESENT: deferred Extremities exam: PRESENT: +1 edema - Bipedal. ABSENT: joint swelling Musculoskeletal exam: PRESENT: deformity - Bilateral toe deformities noted. ABSENT: dislocation Neurological exam: PRESENT: alert, awake, oriented to person, oriented to place , oriented to time, oriented to situation, CN II-XII grossly intact. ABSENT: motor sensory deficit Psychiatric exam: PRESENT: appropriate affect, normal mood Skin exam: PRESENT: rash. ABSENT: jaundice, urticaria - An erythematous macular rash is noted to be present on the anterior and posterior surfaces of the thighs as well as around the waist. There is intertriginous sparing noted. Rash has satellite type expansions with areas of confluence. Results Laboratory Results: 12/29/17 04:22 12/29/17 04:22 Impressions: Foot X-Ray 12/26/17 13:18 IMPRESSION: Mild right forefoot soft tissue swelling Soft tissue ulcer medial left foot at the 1st metatarsophalangeal joint region without bony changes worrisome for osteomyelitis Assessment & Plan - Diagnosis (1) Bilateral cellulitis of lower leg Is this a current diagnosis for this admission?: Yes Plan: Convert from Unasyn to Augmentin given orally today as the patient has been more than 72 hours afebrile and having a normal white blood cell count. (2) History of DVT (deep vein thrombosis) Is this a current diagnosis for this admission?: Yes Plan: Continue DVT prophylaxis (3) Stage III chronic kidney disease Is this a current diagnosis for this admission?: Yes Plan: Observe for any deterioration in renal status during the hospital course. (4) Acute hyperkalemia Is this a current diagnosis for this admission?: Yes Plan: Resolved after admission. Follow with daily labs. (5) Macular erythematous rash Is this a current diagnosis for this admission?: Yes Plan: Patient will be treated with Diflucan 200 mg p.o. daily as this appears to be a fairly typical [place] rash. Response will be gauged by observation. - Time Time Spent with patient: 35 or more minutes Medications reviewed and adjusted accordingly: Yes
[2017-12-30] MEDS ORDERED: FLUCONAZOLE 100 MG TABLET PO SCH (17:00)
[2017-12-30] MEDS: AMOXICILLIN TR/POT CLAVULANATE 500-125 MG TAB PO SCH (21:56)
[2017-12-31] MEDS: HEPARIN SOD (PORCINE) 5,000 UNIT/ML 1 ML SYRINGE SUBCUT SCH ×2 (06:26→13:01)
[2017-12-31] MEDS: AMOXICILLIN TR/POT CLAVULANATE 500-125 MG TAB PO SCH ×2 (06:27→13:03)
[2017-12-31] MEDS: RAMIPRIL 5 MG CAPSULE PO SCH (09:32)
[2017-12-31] MEDS: FAMOTIDINE 20 MG TABLET PO SCH (09:33)
[2017-12-31] MEDS: METOPROLOL SUCCINATE 50 MG TAB.SR.24H PO SCH (09:33)
[2017-12-31] MEDS: DOCUSATE SODIUM 100 MG CAPSULE PO SCH (09:33)
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
[2017-12-31 16:43] VITALS: BP 115/43
== END 2017-12-31 16:47 | disposition home health service (06) | DRG 603 ==
LOC: ER 12:03 → EH 14:59 → 4N 18:13
PROVIDERS: ADMIT Internal Medicine; ATTEND Internal Medicine
DX: L03.116 Cellulitis of left lower limb (principal); L03.115 Cellulitis of right lower limb; S91.202A Unspecified open wound of left great toe with damage to nail, initial encounter; S91.201A Unspecified open wound of right great toe with damage to nail, initial encounter; S80.02XA Contusion of left knee, initial encounter; S80.01XA Contusion of right knee, initial encounter; E87.5 Hyperkalemia; I12.9 Hypertensive chronic kidney disease with stage 1 through stage 4 chronic kidney disease, or unspecified chronic kidney disease; E78.00 Pure hypercholesterolemia, unspecified; N18.3 Chronic kidney disease, stage 3 (moderate); B35.4 Tinea corporis; M19.90 Unspecified osteoarthritis, unspecified site; Z60.2 Problems related to living alone; W19.XXXA Unspecified fall, initial encounter; Y93.89 Activity, other specified; Y92.89 Other specified places as the place of occurrence of the external cause; Z86.718 Personal history of other venous thrombosis and embolism
CPT/HCPCS: 36415; 80048; 80053; 83605; 85025; 87040; 96365; 99284; J0295; J1644; J1956; J3490